=== PATIENT | male | born 1980 | race Caucasian/White ===

== ENCOUNTER 2019-12-11 18:15 | Emergency (ER) | payer SELFPAY ==
[2019-12-11 18:19] VITALS: BP 150/98; PULSE 118; RESP 16; TEMP 36.9; O2SAT 96; BMI 33.7
--- NOTE | 2019-12-11 18:28 | ED_ITS ---
Documented by User: VARUN Velazquez 12/12/19 01:09 HPI - Fever General: Chief Complaint: Fever Stated Complaint: fever Time Seen by Provider: 12/11/19 18:20 History of Present Illness: HPI Narrative: Patient is a 39-year-old male who comes into the ED with fever, cough and nasal congestion. Fever started about 4 to 5 days ago and he has not had a fever for the past 24 hours. Patient describes his cough as dry but sometimes productive with clear sputum. Patient also is complaining of some body aches. Patient is a smoker and is trying to cut down. 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 Denies any known contact with COVID-19 positive patient. Denies any current shortness of breath or respiratory distress. Associated symptoms: Deny abdominal pain, back/flank pain, chills, chest pain, diarrhea, dysuria, headache(s), nasal congestion, nausea or vomiting Review of Systems Const: Reports: fever and body aches; Denies: chills or fatigue Eyes: Denies: change in vision or eye discomfort ENMT: Denies: throat pain, painful swallowing, nasal discharge or nasal fernando estion Card: Denies: chest pain, palpitations, edema, swelling of feet/ankles, shortness of breath on exertion or shortness of breath when lying down Resp: Denies: shortness of breath, productive cough or non-productive cough GI: Denies: abdominal pain, nausea, vomiting, diarrhea, constipation or blood in stool : Denies: flank pain, difficulty urinating, painful urination or blood in urine Musc: Denies: neck pain, back pain or extremity swelling Skin/Breast: Denies: rash or new lesion Neuro: Denies: headache, numbness in extremities or weakness in extremities PFS ED PFSH: Social History Smoking and tobacco status: current every day smoker Physical Exam Narrative: EXAM NARRATIVE: Patient is a 39-year-old male who is sitting comfortably on exam bed when I enter the room. He was wearing a mask. He appeared in no acute distress or any respiratory distress. Const: COMMON NORMALS: oriented x3 HENMT: COMMON NORMALS: normocephalic and TM's normal bilaterally HEAD & SC ALP: normocephalic TYMPANIC MEMBRANE: TM's normal bilaterally MOUTH: oral and palatal mucosa normal THROAT: posterior oropharynx normal and uvula midline Neck/C-Spine: COMMON NORMALS: supple GENERAL: Yes normal visual inspection Lymph: LYMPHATIC: no lymphadenopathy noted Resp: COMMON NORMALS: normal respiratory effort, no retractions, no use of accessory muscles and clear to auscultation bilaterally AUSCULTATION: clear to auscultation bilaterally Cardio: COMMON NORMALS: regular rate, regular rhythm, S1 normal heart sound, S2 normal heart sound, no gallops, no clicks, no murmurs and peripheral pulses 2+ throughout RATE: regular rate RHYTHM: regular rhythm HEART SOUNDS: S1 normal and S2 normal PERIPHERAL PULSES: pulses 2+ throughout GI: COMMON NORMALS: normal to inspection, nondistended, normoactive bowel sounds, soft to palpation, non-tender and no masses PALPATION: Yes soft : COMMON NORMALS: Yes no CVA tenderness BLADDER/KIDNEY EXAM: Yes no CVA tenderness Back/Pelvis: COMMON NORMALS: no CVA tenderness Extremity: COMMON NORMALS: normal to inspection Neuro: COMMON NORMALS: oriented x3 and moves all extremities Skin: COMMON NORMALS: no rashes or lesions noted GENERAL SKIN EXAM: no rashes or lesions noted and dry skin Course Vital Signs: Vital signs: Vital Signs Temperature 98.4 F 12/11/19 18:19 Pulse Rate 109 H 12/11/19 20:16 Respiratory Rate 18 12/11/19 20:16 Blood Pressure 142/102 12/11/19 20:16 Pulse Oximetry 94 12/11/19 20:16 MDM - Fever MDM Narrative: Medical decision making narrative: Patient is a 39-year-old male who comes into the ED with fever, cough, nasal congestion and body aches. He has no known contact with COVID-19 positive patient. 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 Physical exam was unremarkable and patient's showing no signs of acute respiratory distress his lungs are clear to auscultation bilaterally. Influenza lab was negative. CBC showed an elevated white blood cell count of 12.4. Chest x-ray showed no pneumonia, possible bronchitis pending final radiology report. Patient was put on azithromycin. I ordered COVID-19 testing for this patient and he should be getting results in the next 24 to 48 hours. I informed infection prevention nurse here at [facility] about patient and testing for COVID. I told pt he needs to self quarantine until he gets test results and if he is positive then he needs a quarantine for 14 days. Lab Data: Attestation: I reviewed the patient's lab results. Labs: Lab Results 12/11/19 12/11/19 12/11/19 Range/Units 18:27 18:27 18:55 WBC 12.4 H (4.0-10.0) 10^3/ uL RBC 5.66 H (4.1-5.3) 10^6/u L Hgb 17.4 H (11.7-16.6) g/dL Hct 51.1 (42.0-52.0) % MCV 90.3 (80-94) fL MCH 30.7 (28.0-34.0) pg MCHC 34.1 (30.0-36.0) g/dL RDW 12.4 (12.1-15.1) % Plt Count 294 (130-400) 10^3/c mm MPV 9.6 (7.4-10.4) fL Neut % (Auto) 66.2 % Lymph % (Auto) 27.0 % [place] % (Auto) 4.6 % Eos % (Auto) 1.3 % Baso % (Auto) 0.5 % Neut # (Auto) 8.2 H (1.8-7.7) 10^3/u L Lymph # (Auto) 3.3 (0.8-4.8) 10^3/u L [place] # (Auto) 0.6 (0.2-0.9) 10^3/u L Eos # (Auto) 0.2 (0.0-0.8) 10^3/u L Baso # (Auto) 0.1 (0.0-0.1) 10^3/u L Nucleated RBC % (a uto) 0 % Nucleated RBCs # 0.0 /100WBC Sodium (136-145) mmol/L Potassium (3.5-5.1) mmol/L Chloride (98-107) mmol/L Carbon Dioxide (22-29) mmol/L Anion Gap (5-19) BUN (6-20) mg/dL Creatinine (0.7-1.2) mg/dL GFR Calculation (90-130) mL/min Glucose (65-115) mg/dL Calculated Osmolal ity (285-295) mOsm/k g Calcium (8.5-10.5) mg/dL Total Bilirubin (0.15-1.2) mg/dL AST (0-40) U/L ALT (0-41) U/L Alkaline Phosphata se (40-130) IU/L Total Protein (6.6-8.7) g/dL Albumin (3.5-5.2) g/dL Globulin (1.3-4.6) g/dL Influenza Type A A g Cancelled Negative POC Influenza B Ag Cancelled Negative 12/11/19 Range/Units 18:55 WBC (4.0-10.0) 10^3/ uL RBC (4.1-5.3) 10^6/u L Hgb (11.7-16.6) g/dL Hct (42.0-52.0) % MCV (80-94) fL MCH (28.0-34.0) pg MCHC (30.0-36.0) g/dL RDW (12.1-15.1) % Plt Count (130-400) 10^3/c mm MPV (7.4-10.4) fL Neut % (Auto) % Lymph % (Auto) % [place] % (Auto) % Eos % (Auto) % Baso % (Auto) % Neut # (Auto) (1.8-7.7) 10^3/u L Lymph # (Auto) (0.8-4.8) 10^3/u L [place] # (Auto) (0.2-0.9) 10^3/u L Eos # (Auto) (0.0-0.8) 10^3/u L Baso # (Auto) (0.0-0.1) 10^3/u L Nucleated RBC % (a uto) % Nucleated RBCs # /100WBC Sodium 136 (136-145) mmol/L Potassium 3.5 (3.5-5.1) mmol/L Chloride 99 (98-107) mmol/L Carbon Dioxide 22 (22-29) mmol/L Anion Gap 18.5 (5-19) BUN 13 (6-20) mg/dL Creatinine 1.2 (0.7-1.2) mg/dL GFR Calculation 67.1 L (90-130) mL/min Glucose 167 H (65-115) mg/dL Calculated Osmolal ity 282 L (285-295) mOsm/k g Calcium 9.4 (8.5-10.5) mg/dL Total Bilirubin 0.3 (0.15-1.2) mg/dL AST 17 (0-40) U/L ALT 19 (0-41) U/L Alkaline Phosphata se 82 (40-130) IU/L Total Protein 7.3 (6.6-8.7) g/dL Albumin 4.3 (3.5-5.2) g/dL Globulin 3.0 (1.3-4.6) g/dL Influenza Type A A g POC Influenza B Ag Imaging Data^: CXR: Attestation: I personally reviewed and interpreted this imaging study as follows: My impression: Possible Bronchitis. no pneumonia seen. Pending final radiology report. Discharge Plan Discharge Patient Disposition: Home, Self-Care Clinical Impression: Bronchitis Condition: Stable Prescriptions: New azithromycin 250 mg tablet See Rx Instructions .ROUTE .COMPLEX Qty: 6 RF: 0 Discharge Orders: Discharge Order (Routine); Ordered 12/11/19 Ordered By: Chad Casiano Referrals: [facility] [Other] Discharge Diet: Regular Discharge Activity: Limit activity as instructed Patient Instructions: Bronchitis (Acute) - Adult Activity Restrictions/Additional Instructions: Follow-up with your PCP in 7 to 10 days for reevaluation. Take full course of antibiotics as prescribed. We performed COVID-19 testing on you today in the ED and the results should be back within 24 to 48 hours. We will contact you with results. When you leave the ED here you need to be in self quarantine until you get COVID-19 results. If you test positive for COVID, then self quarantine for 14 days. drink plenty of fluids and stay hydrated. Take ibuprofen or Tylenol for fevers. Discharge Date/Time: 12/11/19 20:16 Coding Level of Care Code ED Manager Foreign for Chg Fwd Exam Comprehensive Documented by User: Diana Banerjee Padmini 12/12/19 11:20 HPI - Fever General: Chief Complaint: Fever Stated Complaint: fever Time Seen by Provider: 12/11/19 18:20 PFSH ED PFSH: Social History Smoking and tobacco status: current every day smoker Course Vital Signs: Vital signs: Vital Signs Temperature 98.4 F 12/11/19 18:19 Pulse Rate 109 H 12/11/19 20:16 Respiratory Rate 18 12/11/19 20:16 Blood Pressure 142/102 12/11/19 20:16 Pulse Oximetry 94 12/11/19 20:16 MDM - Fever Lab Data: Labs: Lab Results 12/11/19 12/11/19 12/11/19 Range/Units 18:27 18:27 18:55 WBC 12.4 H (4.0-10.0) 10^3/ uL RBC 5.66 H (4.1-5.3) 10^6/u L Hgb 17.4 H (11.7-16.6) g/dL Hct 51.1 (42.0-52.0) % MCV 90.3 (80-94) fL MCH 30.7 (28.0-34.0) pg MCHC 34.1 (30.0-36.0) g/dL RDW 12.4 (12.1-15.1) % Plt Count 294 (130-400) 10^3/c mm MPV 9.6 (7.4-10.4) fL Neut % (Auto) 66.2 % Lymph % (Auto) 27.0 % [place] % (Auto) 4.6 % Eos % (Auto) 1.3 % Baso % (Auto) 0.5 % Neut # (Auto) 8.2 H (1.8-7.7) 10^3/u L Lymph # (Auto) 3.3 (0.8-4.8) 10^3/u L [place] # (Auto) 0.6 (0.2-0.9) 10^3/u L Eos # (Auto) 0.2 (0.0-0.8) 10^3/u L Baso # (Auto) 0.1 (0.0-0.1) 10^3/u L Nucleated RBC % (a uto) 0 % Nucleated RBCs # 0.0 /100WBC Sodium (136-145) mmol/L Potassium (3.5-5.1) mmol/L Chloride (98-107) mmol/L Carbon Dioxide (22-29) mmol/L Anion Gap (5-19) BUN (6-20) mg/dL Creatinine (0.7-1.2) mg/dL GFR Calculation (90-130) mL/min Glucose (65-115) mg/dL Calculated Osmolal ity (285-295) mOsm/k g Calcium (8.5-10.5) mg/dL Total Bilirubin (0.15-1.2) mg/dL AST (0-40) U/L ALT (0-41) U/L Alkaline Phosphata se (40-130) IU/L Total Protein (6.6-8.7) g/dL Albumin (3.5-5.2) g/dL Globulin (1.3-4.6) g/dL Influenza Type A A g Cancelled Negative POC Influenza B Ag Cancelled Negative 12/11/19 Range/Units 18:55 WBC (4.0-10.0) 10^3/ uL RBC (4.1-5.3) 10^6/u L Hgb (11.7-16.6) g/dL Hct (42.0-52.0) % MCV (80-94) fL MCH (28.0-34.0) pg MCHC (30.0-36.0) g/dL RDW (12.1-15.1) % Plt Count (130-400) 10^3/c mm MPV (7.4-10.4) fL Neut % (Auto) % Lymph % (Auto) % [place] % (Auto) % Eos % (Auto) % Baso % (Auto) % Neut # (Auto) (1.8-7.7) 10^3/u L Lymph # (Auto) (0.8-4.8) 10^3/u L [place] # (Auto) (0.2-0.9) 10^3/u L Eos # (Auto) (0.0-0.8) 10^3/u L Baso # (Auto) (0.0-0.1) 10^3/u L Nucleated RBC % (a uto) % Nucleated RBCs # /100WBC Sodium 136 (136-145) mmol/L Potassium 3.5 (3.5-5.1) mmol/L Chloride 99 (98-107) mmol/L Carbon Dioxide 22 (22-29) mmol/L Anion Gap 18.5 (5-19) BUN 13 (6-20) mg/dL Creatinine 1.2 (0.7-1.2) mg/dL GFR Calculation 67.1 L (90-130) mL/min Glucose 167 H (65-115) mg/dL Calculated Osmolal ity 282 L (285-295) mOsm/k g Calcium 9.4 (8.5-10.5) mg/dL Total Bilirubin 0.3 (0.15-1.2) mg/dL AST 17 (0-40) U/L ALT 19 (0-41) U/L Alkaline Phosphata se 82 (40-130) IU/L Total Protein 7.3 (6.6-8.7) g/dL Albumin 4.3 (3.5-5.2) g/dL Globulin 3.0 (1.3-4.6) g/dL Influenza Type A A g POC Influenza B Ag Discharge Plan Discharge Patient Disposition: Home, Self-Care Clinical Impression: Bronchitis Condition: Stable Prescriptions: New azithromycin 250 mg tablet See Rx Instructions .ROUTE .COMPLEX Qty: 6 RF: 0 Discharge Orders: Discharge Order (Routine); Ordered 12/11/19 Ordered By: Chad Casiano Referrals: [facility] [Other] Discharge Diet: Regular Discharge Activity: Limit activity as instructed Patient Instructions: Bronchitis (Acute) - Adult Activity Restrictions/Additional Instructions: Follow-up with your PCP in 7 to 10 days for reevaluation. Take full course of antibiotics as prescribed. We performed COVID-19 testing on you today in the ED and the results should be back within 24 to 48 hours. We will contact you with results. When you leave the ED here you need to be in self quarantine until you get COVID-19 results. If you test positive for COVID, then self quarantine for 14 days. drink plenty of fluids and stay hydrated. Take ibuprofen or Tylenol for fevers. Discharge Date/Time: 12/11/19 20:16 Coding Level of Care Code ED Manager Foreign for Irasema Fwd Exam Comprehensive
--- NOTE | 2019-12-11 18:36 | XR_ITS ---
WS: [id number] Portable AP upright chest, 12/11/2019 Clinical Data: fever and cough Comparison: PA and lateral chest, 08/24/2011 Findings: No nodules, masses or effusions are seen. The heart is normal. The pulmonary vascularity is not increased. No pneumonia or pneumothorax is seen. XR/XR chest 1V portable [id number] Impression: Negative chest.
[2019-12-11 19:08] LABS: Basophils # 0.1 10^3/uL (0.0-0.1); Basophils % 0.5 %; Eosinophils # 0.2 10^3/uL (0.0-0.8); Eosinophils % 1.3 %; Hematocrit 51.1 % (42.0-52.0); Hemoglobin 17.4 g/dL (11.7-16.6); Lymphocytes # 3.3 10^3/uL (0.8-4.8); Mean Corpuscular HGB Conc 34.1 g/dL (30.0-36.0); Mean Corpuscular Hemoglobin 30.7 pg (28.0-34.0); Mean Corpuscular Volume 90.3 fL (80-94); Mean Platelet Volume 9.6 fL (7.4-10.4); Monocytes # 0.6 10^3/uL (0.2-0.9); Monocytes % 4.6 %; Neutrophils # 8.2 10^3/uL (1.8-7.7); Neutrophils % 66.2 %; Nucleated Red Blood Cells % 0 %; Platelet Count 294 10^3/cmm (130-400); Red Blood Count 5.66 10^6/uL (4.1-5.3); Red Cell Distribution Width 12.4 % (12.1-15.1); White Blood Count 12.4 10^3/uL (4.0-10.0)
[2019-12-11 19:27] LABS: Alanine Aminotransferase 19 U/L (0-41); Albumin Level 4.3 g/dL (3.5-5.2); Alkaline Phosphatase 82 IU/L (40-130); Anion Gap 18.5 (5-19); Aspartate Amino Transferase 17 U/L (0-40); Blood Urea Nitrogen 13 mg/dL (6-20); Calcium 9.4 mg/dL (8.5-10.5); Carbon Dioxide 22 mmol/L (22-29); Chloride 99 mmol/L (98-107); Creatinine Clr Calc Pharmacy 115.3796; Glomerular Filtration Rate 67.1 mL/min (90-130); Glucose 167 mg/dL (65-115); Osmolality Calculated 282 mOsm/kg (285-295); Potassium 3.5 mmol/L (3.5-5.1); Sodium 136 mmol/L (136-145); Total Bilirubin 0.3 mg/dL (0.15-1.2); Total Protein 7.3 g/dL (6.6-8.7)
[2019-12-11 19:53] LABS: Influenza A by IFA Negative (Negative); Influenza B by IFA Negative (Negative)
[2019-12-11 20:16] VITALS: BP 142/102; PULSE 109; RESP 18; O2SAT 94
[2019-12-15 12:46] LABS: Coronavirus Overall Results NOT DETECTED
--- NOTE | 2019-12-15 16:05 | PC.NURSE ---
pt contacted and given result of COVID 19 test
== END 2019-12-11 20:16 | disposition home or self-care (01) ==
PROVIDERS: Emergency Provider Physician Assistant
DX: J40 Bronchitis, not specified as acute or chronic (principal); F17.200 Nicotine dependence, unspecified, uncomplicated
CPT/HCPCS: 12345; 36415; 71045; 80053; 85025; 87635; 87804; 99281; 99283

== ENCOUNTER → 2020-05-07 09:01 | Outpatient (BNVA) | payer MEDICAID, SELFPAY | PROVIDERS: Visit Provider Podiatrist Foot & Ankle Surgery | DX: M21.622 Bunionette of left foot (principal); M79.672 Pain in left foot; M79.671 Pain in right foot | CPT/HCPCS: 73630 ==

== ENCOUNTER → 2020-05-28 09:19 | Outpatient (BNVA) | payer MEDICAID, SELFPAY | PROVIDERS: Visit Provider Internal Medicine | DX: Z11.59 Encounter for screening for other viral diseases (principal) | CPT/HCPCS: 87635 ==

== ENCOUNTER 2020-05-30 07:02 | Day surgery (SDC) | payer MEDICAID, SELFPAY ==
[2020-05-29 16:04] VITALS: BMI 35.9
--- NOTE | 2020-05-30 | SCC_ITS ---
Procedure Done: Bunionectomy [place]ailors [id number] 17 seconds of fluoroscopic guidance, for a cumulative dose of 0.488 mGy, was provided to Dr. Fox by the radiology department. C-arm images of the LEFT foot were saved for the patient's permanent record. [facility]
[2020-05-30 07:27] VITALS: BP 147/101; PULSE 88; RESP 18; TEMP 36.2; O2SAT 97
[2020-05-30] MEDS: sodium chloride 0.9% 1,000 ML 30 ML IV (07:41)
--- NOTE | 2020-05-30 07:47 | ANES.PREANE2 ---
Pre-Anesthetic Assessment Pre-Anesthetic Assessment: Height/Weight: Height 1.88 m Weight 127.006 kg Temp Pulse Resp BP Pulse Ox 97.2 F L 88 18 147/101 97 05/30/20 07:27 05/30/20 07:27 05/30/20 07:27 05/30/20 07:27 05/30/20 07:27 Preop Diagnosis: Left fifth hammertoe deformity. Left tailor's bunion. Proposed Procedure: Operation Date: 05/30/20 08:35 Proposed Procedures p Bunionectomy [place] 05959 M21.622(Left) - Kamron Fox DPM Familial anesthetic complications: Numbing medication doesn't work well fo rme Was Beta Timothy taken within 24 hours: N/A Last intake: Intake NPO > 8 hrs Last Liquid Date 05/29/20 Last Solid Date 05/29/20 Social: Social History: Tobacco Exam: Pre-Anes Outpt Exam: alert, oriented x 3, clear to auscultation bilaterally and regular rate & rhythm Airway: Cervical ROM: WNL MP: 3 Dentition: Chipped Additional comments: large neck circumference Pulmonary: Comments: bronchitis in november Metabolic: Metabolic: Morbid obesity Neuropsych: Neuropsych: CVA (?) Comments: hx L sided hemiparesis 2 years ago - no residual deficits (he attibutes this to stress) Anesthetic Plan: ASA status: 3 Anesthesia: MAC Risk of > 500 ml blood loss (7ml/kg in children): No PFSH Anesthesia PFSH: Medical History (Updated 05/07/20 @ 09:49 by Kamron Fox DPM) Amaral's palsy Slipped cervical disc Family History Mother Diabetes Hyperlipidemia Hypertension Brother Diabetes Hypertension Clotting disorder Father Diabetes Social History Smoking and tobacco status: current every day smoker cigarettes Packs smoked per day: 1.25 Second hand smoke exposure: Yes Alcohol intake: current Alcohol intake frequency: few times a month Caregiver/support person: Yes Household members: significant other Marital status: Single Sexually active: Yes Current gender identity: Male Data Anesthesia Cardiac Studies: No Data to Display
--- NOTE | 2020-05-30 08:23 | W.PM.OPSUD ---
Surgery/Procedure H&P Update DATE OF PROCEDURE: May 30, 2020 DATE H&P PERFORMED: 05/07/20 H&P UPDATE INFORMATION: I have reviewed H&P completed within last 30 days, I have examined patient prior to procedure, No changes to prior documentation and H&P is in [facility] [place] on date indicated PREOP DIAGNOSIS: Left fifth hammertoe deformity. Left tailor's bunion. PLANNED PROCEDURE: Operation Date: 05/30/20 08:35 Proposed Procedures p Bunionectomy [facility] [address]341 M21.622(Left) - Kamron Fox DPM
--- NOTE | 2020-05-30 09:54 | XR_ITS ---
WS: [id number] Left foot, 3 views, 05/30/2020 Clinical Data: post op Comparison: Bilateral feet, 05/07/2020. Findings: The patient has had an osteotomy of the distal left fifth metatarsal. The lateral aspect of the head of the fifth metacarpal has been shaved off. There are 2 small orthopedic screws in the distal fifth metatarsal. There is soft tissue swelling over the operative site. XR/XR foot LT min 3V* [id number] Impression: Bunionectomy and osteotomy of the distal left fifth metatarsal.
[2020-05-30 09:58] VITALS: BP 110/71; PULSE 84; RESP 18; TEMP 36.6; O2SAT 92
--- NOTE | 2020-05-30 10:03 | ANE.PACU2 ---
Inpatient post-anesthesia follow up: Airway intact: Yes Vital signs: Temperature 97.8 F Pulse Rate 84 Respiratory Rate 18 Blood Pressure 110/71 Pulse Oximetry 92 Oxygen Delivery Me thod Room Air Oxygen Flow Rate Fraction of Inspir ed Oxygen Hydration adequate: Yes Nausea and vomiting: No Pain level: 1 Mental status: Baseline
[2020-05-30 10:19] VITALS: BP 110/72; PULSE 81; RESP 18; O2SAT 94
--- NOTE | 2020-05-30 12:52 | P.OP_ITS ---
Operative Report Date of procedure: May 30, 2020 Pre-op Diagnosis: Left fifth hammertoe deformity. Left tailor's bunion. Post-op diagnosis: same Procedure Done: Left tailor's bunionectomy CPT code 04544 Implants: [place] 28 2.5mm screw by 14 mm screw x2 partially-threaded, cannulated. 2-0 Vicryl, 4-0 Vicryl, 4-0 nylon Specimens removed/disposition: None Pathology: none sent Surgeon: Kamron Fox D.P.M. Technical Sales Manager: Liza Anesthesia: MAC Estimated blood loss: 3 mL Tourniquet time: See intraoperative documentation IV fluids: None Urine output: None Complications: None Condition: stable Disposition: PACU Brief History: Mr. Bentley is a pleasant 39-year-old male with bilateral foot pain left more severe than right. He has pain on a daily basis at his left foot tailor's bunion deformity. He is exhausted conservative measures consisting of wide accommodative shoes, padding, stretching exercises, arch support, anti- inflammatories. 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 Would like to have this surgically corrected at this time. Discussed risks versus benefits in clinic, risks include pain, bleeding, numbness, infection, failure to correct deformity, overcorrection of deformity, painful retained hardware, delayed union, malunion, nonunion, transfer pressure, transfer lesion, swelling and bruising. No guarantees written, expressed or implied. Patient has signed informed consent, left foot marked by my initials and I met with patient preoperatively to once again go over risks versus benefits of the procedure as well as outlined postop follow-up and recovery. Patient wishes to proceed. Procedure: Under mild sedation the patient was brought to the operating room and placed on the operating table in supine position. A timeout was performed. Anesthesia was then administered by the anesthesia service. Local anesthesia injected by myself consisting of 20 cc of 0.5% Marcaine plain and a reverse Peralta block fashion to the left foot. Well-padded pneumatic tourniquet applied to the left ankle. The left lower extremity was then scrubbed, prepped and draped utilizing normal aseptic technique. Left foot was examined a weighted with an Esmarch bandage and the tourniquet inflated to 250 mmHg. Attention was directed to the dorsal lateral aspect of the left fifth metatarsal phalangeal joint where a linear longitudinal incision was made through skin with a #15 blade. Accommodation of blunt and sharp dissection carried down through subcutaneous tissue down to the level of the joint capsule and periosteum. Fresh blade was utilized for periosteal incision and capsular incision this was in a linear fashion in the head of the fifth metatarsal both dorsally and laterally was freed from its soft tissue and capsular attachments. Care was taken to retract and preserve all neurovascular and tendinous structures. Bleeders were ligated and cauterized as necessary. A sagittal saw was utilized to resect the dorsal lateral aspect of the fifth metatarsal head osseous prominence this was passed and operative field. Next a 1.1 K wire was inserted lateral to medial and the head of the fifth metatarsal left foot to act as an axis guide followed by a through and through chevron style osteotomy with a long plantar arm. Head of the fifth metatarsal was translocated medially and temporary fixated followed by fixation utilizing standard AO technique and Para emigdio 28 2.5 mm partially-threaded cannulated screws times 14 mm x 2. Excellent bony apposition and compression noted. Temporary fixation removed. Remaining lateral shelf was transected with sagittal saw and all rough edges smoothed. Positioning of screw and anatomical reduction of the bunionette was appreciated both with direct visualization and intraoperative fluoroscopy, screws were not violating the metatarsal phalangeal joint. Incision site was flushed with copious amounts of sterile saline solution. Capsular and periosteal structures reapproximated utilizing 2-0 Vicryl. Subcutaneous tissue reapproximated utilizing 4-0 Vicryl and skin closed with 4-0 nylon. Incision site was dressed with Adaptic, sterile 4 x 4's, Kerlix and Micky wrap. Tourniquet was deflated and a prompt hyperemic response was noted to the distal digits of the left foot. Patient tolerated the procedure well and was transferred to the PACU with vital signs stable and vascular status intact. He was dispensed a cam boot is to utilize this at all times when ambulating. Is to elevate his left foot while at rest. He was given further postoperative instructions and my contact information at discharge summary/discharge paperwork.
== END 2020-05-30 10:33 | disposition home or self-care (01) ==
PROVIDERS: Visit Provider Podiatrist Foot & Ankle Surgery
PROC: 0QBP0ZZ Excision of Left Metatarsal, Open Approach (ICD-10-PCS; CPT 28110; principal; 2020-05-30 08:35)
DX: M21.622 Bunionette of left foot (principal); M20.42 Other hammer toe(s) (acquired), left foot; E66.01 Morbid (severe) obesity due to excess calories; F17.210 Nicotine dependence, cigarettes, uncomplicated; Z88.5 Allergy status to narcotic agent; Z68.35 Body mass index [BMI] 35.0-35.9, adult
CPT/HCPCS: 28308; 12345; 73630; 76000; C1713; C9290; J0690; J2250; J2704; J3010; J3490; J7030

== ENCOUNTER 2020-06-12 11:09 | Outpatient (CLI) | payer MEDICAID, SELFPAY ==
--- NOTE | 2020-06-12 11:15 | XR_ITS ---
WS: [id number] LEFT FOOT: 3 VIEW(S) TECHNIQUE: AP, oblique and lateral. HISTORY: post operative COMPARISON: 05/30/2020 No acute fracture or dislocation. Osteotomy site distal fifth metatarsal. Partial healing along the osteotomy site. There are 2 small s crews in the fifth metatarsal metaphysis which are unchanged. There is persistent soft soft tissue ed vitor adjacent to the fifth metatarsal head which is probably postoperative. XR/XR foot LT min 3V* [id number] IMPRESSION: Partial healing LEFT fifth metatarsal osteotomy site. Postoperative screws unch anged in position with no complication.
== END 2020-06-12 11:10 | disposition home or self-care (01) ==
LOC: RADWPI 11:13
PROVIDERS: Visit Provider Podiatrist Foot & Ankle Surgery
DX: Z98.890 Other specified postprocedural states (principal)
CPT/HCPCS: 73630

== ENCOUNTER → 2020-06-18 14:37 | Outpatient (BNVA) | payer MEDICAID, SELFPAY | PROVIDERS: Visit Provider Podiatrist Foot & Ankle Surgery | DX: M21.622 Bunionette of left foot (principal) | CPT/HCPCS: 73630 ==

== ENCOUNTER → 2020-07-09 16:38 | Outpatient (BNVA) | payer MEDICAID, SELFPAY | PROVIDERS: Visit Provider Podiatrist Foot & Ankle Surgery | DX: Z98.890 Other specified postprocedural states (principal); M21.622 Bunionette of left foot | CPT/HCPCS: 73630 ==

== ENCOUNTER → 2021-04-24 13:39 | Outpatient (BNVA) | payer MEDICAID, SELFPAY | PROVIDERS: Visit Provider Podiatrist Foot & Ankle Surgery | DX: M79.672 Pain in left foot (principal) | CPT/HCPCS: 73630 ==

== ENCOUNTER 2021-09-29 18:23 | Emergency (ER) | payer MEDICAID, SELFPAY ==
[2021-09-29 19:11] VITALS: BP 133/90; PULSE 106; RESP 16; TEMP 36.7; O2SAT 96; BMI 36.9
--- NOTE | 2021-09-29 21:15 | ED_ITS ---
HPI - Extremity Problem General: Chief complaint: Extremity Problem,Nontraumatic Stated complaint: Hip Pain to Knee to Groan Time Seen by Provider: 09/29/21 20:56 History of Present Illness: HPI Narrative: 41-year-old male patient comes in today with complaints of left hip pain radiating to his left knee. Patient reports that started yesterday. Patient reports worsening discomfort with burning sensation. Patient does have a history of chronic low back pain and degenerative disc disease. Review of Systems General: Reports: 10 or more systems reviewed and unremarkable except in HPI and below Musc: Reports: other (Left hip pain) [facility] ED PFSH: Medical History (Updated 09/29/21 @ 21:14 by ERMA Mckee) Amaral's palsy Slipped cervical disc Family History Mother Diabetes Hyperlipidemia Hypertension Brother Diabetes Hypertension Clotting disorder Father Diabetes Social History Second hand smoke exposure: Yes Alcohol intake: current Alcohol intake frequency: few times a month Caregiver/support person: Yes Household members: significant other Marital status: Single Sexually active: Yes Current gender identity: Male Physical Exam Const: COMMON NORMALS: patient oriented x3 GENERAL APPEARANCE: cooperative HENMT: COMMON NORMALS: normocephalic and Normal external nose present HEAD & SCALP: normocephalic NOSE: Normal external nose present Eye: GENERAL EYE: appearance normal, both eyes and all related structures Lymph: LYMPHATIC: no lymphadenopathy noted Resp: COMMON NORMALS: normal respiratory effort EFFORT & INSPECTION: Yes able to speak in complete sentences Cardio: COMMON NORMALS: regular rate and regular rhythm RATE: regular rate RHYTHM: regular rhythm GI: COMMON NORMALS: non-tender : COMMON NORMALS: Yes no CVA tenderness BLADDER/KIDNEY EXAM: Yes no CVA tenderness Back/Pelvis: COMMON NORMALS: no CVA tenderness THORACIC SPINE/UPPER BACK: Yes normal to inspection LUMBAR SPINE/LOWER BACK: Yes lumbar spinal tenderness Lumbar spinal tenderness location: L4 and L5, Yes paraspinal muscle tenderness Lumbar paraspinal muscle tenderness: left and Yes straight leg raise positive left Extremity: COMMON NORMALS: normal to inspection Neuro: COMMON NORMALS: patient oriented x3 and moves all extremities Psych: COMMON NORMALS: mental status grossly normal and cooperative Skin: COMMON NORMALS: no rashes or lesions noted GENERAL SKIN EXAM: no rashes or lesions noted Course Vital Signs: Vital signs: Vital Signs Temperature 98.1 F 09/29/21 19:11 Pulse Rate 106 H 09/29/21 19:11 Respiratory Rate 16 09/29/21 19:11 Blood Pressure 133/90 09/29/21 19:11 Pulse Oximetry 96 09/29/21 19:11 MDM - Extremity (Nontraumatic) MDM Narrative: Medical decision making narrative: 41-year-old male patient comes in today with complaints of pain in his posterior left hip radiating down to his knee. On exam patient has tenderness in the lumbar spine around L4-L5 area. Patient also has some muscle tightness and tenderness on the left lower lumbar area. Differential diagnosis includes facet arthropathy, intervertebral disc disease, sciatica. I think the patient probably has exacerbation of his chronic back pain with some sciatic symptoms. Patient was given a 10 mg dexamethasone, 60 of Toradol, and 60 mg orphenadrine. Patient was sent home with 1 hydrocodone tablet. Patient will be continued on hydrocodone and diclofenac for his pain and inflammation. Recommended follow-up with primary care in 1 week for further treatment and evaluation and consideration of physical therapy or referral. Discharge Plan Discharge Patient Disposition: Home Clinical Impression: Sciatica Qualifiers: Laterality: left Qualified Code(s): M54.32 - Sciatica, left side Condition: Stable Prescriptions: New hydrocodone-acetaminophen 5-325 mg tablet 1 tab PO Q6H PRN (Reason: pain) Qty: 10 RF: 0 diclofenac sodium 75 mg tablet,delayed release (DR/EC) 75 mg PO BID Qty: 14 RF: 0 No Action acetaminophen 650 mg Tablet Extended Release 650 mg PO Q12H PRN (Reason: Pain) RF: 0 Hold Instructions: Resume on 06/04/20. Hold tylenol until done with Hydr ocodone. ibuprofen 200 mg Tablet 200 mg PO Q6H PRN (Reason: Pain) RF: 0 Hold Instructions: Resume on 07/18/20. Discharge Orders: Discharge ED (Routine); Ordered 09/29/21 Ordered By: Ramon Gama Discharge Diet: Usual diet Discharge Activity: Increase activity as tolerated Patient Instructions: Back Pain (ED), Lower Back Exercises (ED), Opioid Safety Activity Restrictions/Additional Instructions: Activity as tolerated. Gentle stretching and range of motion exercises. Drink plenty of water with medication. Follow-up with primary care for further treatment and evaluation. You may need to have referral to physical therapy for repeat treatment, or referral to a spinal specialist for further care. Return to the ER for new concerns. Coding Level of Care Code ED Hot Dip Plater for Irasema Ferriera
[2021-09-29] MEDS: ketorolac 30 mg/mL INJ IM (21:29)
[2021-09-29] MEDS: dexamethasone 10 mg/mL INJ IM (21:32)
[2021-09-29] MEDS: orphenadrine 30 mg/mL Inj 2 mL 60 MG IM (21:33)
== END 2021-09-29 21:38 | disposition home or self-care (01) ==
PROVIDERS: Emergency Provider Nurse Practitioner Family
DX: M54.32 Sciatica, left side (principal); Z77.22 Contact with and (suspected) exposure to environmental tobacco smoke (acute) (chronic)
CPT/HCPCS: 96372; 99283; J1100; J1885; J2360

== ENCOUNTER 2021-10-10 06:35 | Emergency (ER) | payer MEDICAID, SELFPAY ==
[2021-10-10 06:46] VITALS: BP 158/103; PULSE 109; RESP 26; TEMP 36.1; O2SAT 96; BMI 37.8
--- NOTE | 2021-10-10 07:34 | W.ED.BACK ---
HPI - Back Pain/Injury General: Chief Complaint: Back Pain/Injury Stated Complaint: low back pain Time Seen by Provider: 10/10/21 07:10 History of Present Illness: HPI Narrative: Patient presents with a week and a half history of acute on chronic back pain. Patient says 2018 he fell at work and was told first that he had a bulging disc and then he said later in the provider change it to degenerative disc disease after x-rays were back. Patient did not agree with that diagnosis. Patient has been dealing back pain since then but a week and half ago he twisted and felt pain in his back and came into the ER got a prescription and injection. He said medication helps some, patient states he does not like narcotics he understands that help with pain but he does not like to take them. Patient states pain is back and that left hip going down about midway to his calf. Hurts to ambulate set up roll over in bed. Has appoint with ERMA Ellison this coming week. MD elicited complaint: back pain and back injury Pertinent past history: prior back pain Onset (ago): week(s) Timing: constant Severity: moderate Similar Symptoms Previously: Yes Quality: burning and aching Location: lumbar spine Radiation: left upper leg and left leg below the knee Exacerbating factors: movement and sitting upright Relieving factors: immobilization Context: turning/twisting Associated symptoms: Reports no associated symptoms; Deny abdominal pain, chills, fever(s), nausea or vomiting Treatments prior to arrival: NSAIDS and acetaminophen Review of Systems Const: Denies: fever(s), chills or body aches Eyes: Denies: change in vision or blurry vision ENMT: Denies: throat pain or nasal congestion Card: Denies: chest pain or dyspnea on exertion Resp: Denies: dyspnea, productive cough or non-productive cough GI: Denies: abdominal pain, nausea or vomiting : Denies: difficulty urinating Musc: Reports: back pain; Denies: extremity pain Skin/Breast: Denies: rash Neuro: Denies: headache(s) Psych: Denies: anxiety or depression Sina/Lymph: Denies: easy bruising PFS ED PFSH: Medical History (Updated 10/10/21 @ 07:34 by ERMA Baez) Amaral's palsy Slipped cervical disc Family History Mother Diabetes Hyperlipidemia Hypertension Brother Diabetes Hypertension Clotting disorder Father Diabetes Social History Second hand smoke exposure: Yes Alcohol intake: current Alcohol intake frequency: few times a month Caregiver/support person: Yes Household members: significant other Marital status: Single Sexually active: Yes Current gender identity: Male Physical Exam Const: COMMON NORMALS: patient oriented x3 GENERAL APPEARANCE: cooperative Resp: COMMON NORMALS: normal respiratory effort Cardio: RATE: tachycardic GI: INSPECTION: Yes normal to inspection Back/Pelvis: OTHER: Observe patient ambulating down the mae and he favors that left leg. Does have disconcerted gait. Patient has pain when crossing legs and lifting left leg over right. This pain in the low back and down the hip. Neuro: COMMON NORMALS: patient oriented x3 Psych: COMMON NORMALS: mental status grossly normal ATTITUDE: Yes calm Course Vital Signs: Vital signs: Vital Signs Temperature 96.9 F L 10/10/21 06:46 Pulse Rate 109 H 10/10/21 06:46 Respiratory Rate 26 H 10/10/21 06:46 Blood Pressure 158/103 10/10/21 06:46 Pulse Oximetry 96 10/10/21 06:46 Discharge Plan Discharge Patient Disposition: Home Clinical Impression: Sciatica Qualifiers: Laterality: left Qualified Code(s): M54.32 - Sciatica, left side Strain of lumbar region Qualifiers: Encounter type: subsequent encounter Qualified Code(s): S39.012D - Strain of muscle, fascia and tendon of lower back, subsequent encounter Condition: Stable Prescriptions: New prednisone 20 mg tablet 60 mg PO DAILY Qty: 21 RF: 0 Celebrex 100 mg capsule 200 mg PO BID Qty: 20 RF: 0 Discontinued diclofenac sodium 75 mg tablet,delayed release (DR/EC) 75 mg PO BID Qty: 14 RF: 0 No Action hydrocodone-acetaminophen 5-325 mg tablet 1 tab PO Q6H PRN (Reason: pain) Qty: 10 RF: 0 acetaminophen 650 mg Tablet Extended Release 650 mg PO Q12H PRN (Reason: Pain) RF: 0 Hold Instructions: Resume on 06/04/20. Hold tylenol until done with Hydrocodone. ibuprofen 200 mg Tablet 200 mg PO Q6H PRN (Reason: Pain) RF: 0 Hold Instructions: Resume on 07/18/20. Discharge Orders: Discharge ED (Routine); Ordered 10/10/21 Ordered By: Deejay Leach Discharge Diet: Usual diet Discharge Activity: Limit activity as instructed Patient Instructions: Lumbar Radiculopathy (ED) Activity Restrictions/Additional Instructions: Follow-up with medical provider as directed. Take medications as prescribed. Return to the ER or your medical provider if condition worsens. Please read and understand discharge instructions. If any questions ask please. Coding Level of Care Code ED Aircraft Structural Design Engineer for Irasema Ferreira
--- NOTE | 2021-10-10 11:11 | ED_ITS ---
HPI - Back Pain/Injury General: Chief Complaint: Back Pain/Injury Stated Complaint: low back pain Time Seen by Provider: 10/10/21 07:10 History of Present Illness: Severity: moderate Similar Symptoms Previously: Yes Quality: burning and aching Exacerbating factors: movement and sitting upright Relieving factors: immobilization Treatments prior to arrival: NSAIDS and acetaminophen [facility] ED PFSH: Medical History (Updated 10/10/21 @ 07:34 by ERMA Baez) Amaral's palsy Slipped cervical disc Family History Mother Diabetes Hyperlipidemia Hypertension Brother Diabetes Hypertension Clotting disorder Father Diabetes Social History Second hand smoke exposure: Yes Alcohol intake: current Alcohol intake frequency: few times a month Caregiver/support person: Yes Household members: significant other Marital status: Single Sexually active: Yes Current gender identity: Male Course Vital Signs: Vital signs: Vital Signs Temperature 96.9 F L 10/10/21 06:46 Pulse Rate 109 H 10/10/21 06:46 Respiratory Rate 26 H 10/10/21 06:46 Blood Pressure 158/103 10/10/21 06:46 Pulse Oximetry 96 10/10/21 06:46 MDM - Back Pain/Injury MDM Narrative: Medical decision making narrative: Patient comes back to the ER with acute on chronic back pain. Patient with the same pain that he had the other day. He said medications helped for a while but they are back. Patient says he does not like narcotics because we makes him feel. I gave patient pres cription for steroids and Celebrex to help with discomfort. Also ordered a shot of Toradol. Patient also with mild hypertension consistent with past history. Does not take medication. Patient discharged. I injection Toradol was administered by nurse and patient did not receive the injection. Patient instructed come back to the ER to receive injection. Discharge Plan Discharge Patient Disposition: Home Clinical Impression: Sciatica Qualifiers: Laterality: left Qualified Code(s): M54.32 - Sciatica, left side Strain of lumbar region Qualifiers: Encounter type: subsequent encounter Qualified Code(s): S39.012D - Strain of muscle, fascia and tendon of lower back, subsequent encounter Condition: Stable Prescriptions: New prednisone 20 mg tablet 60 mg PO DAILY Qty: 21 RF: 0 Celebrex 100 mg capsule 200 mg PO BID Qty: 20 RF: 0 Discontinued diclofenac sodium 75 mg tablet,delayed release (DR/EC) 75 mg PO BID Qty: 14 RF: 0 No Action hydrocodone-acetaminophen 5-325 mg tablet 1 tab PO Q6H PRN (Reason: pain) Qty: 10 RF: 0 acetaminophen 650 mg Tablet Extended Release 650 mg PO Q12H PRN (Reason: Pain) RF: 0 Hold Instructions: Resume on 06/04/20. Hold tylenol until done with Hydrocodone. ibuprofen 200 mg Tablet 200 mg PO Q6H PRN (Reason: Pain) RF: 0 Hold Instructions: Resume on 07/18/20. Discharge Orders: Discharge ED (Routine); Ordered 10/10/21 Ordered By: Deejay Leach Discharge Diet: Usual diet Discharge Activity: Limit activity as instructed Patient Instructions: Lumbar Radiculopathy (ED) Activity Restrictions/Additional Instructions: Follow-up with medical provider as directed. Take medications as prescribed. Return to the ER or your medical provider if condition worsens. Please read and understand discharge instructions. If any questions ask please. Coding Level of Care Code ED Staff [employer] Information [employer] Officer for Irasema Ferreira
== END 2021-10-10 08:17 | disposition home or self-care (01) ==
PROVIDERS: Emergency Provider Nurse Practitioner Family
DX: M54.32 Sciatica, left side (principal); S39.012A Strain of muscle, fascia and tendon of lower back, initial encounter; Z77.22 Contact with and (suspected) exposure to environmental tobacco smoke (acute) (chronic); X50.1XXA Overexertion from prolonged static or awkward postures, initial encounter
CPT/HCPCS: 99282

== ENCOUNTER → 2021-10-27 08:32 | Outpatient (BNVA) | payer MEDICAID, SELFPAY | PROVIDERS: Visit Provider Podiatrist Foot & Ankle Surgery | DX: Z20.822 Contact with and (suspected) exposure to COVID-19 (principal); Z01.818 Encounter for other preprocedural examination | CPT/HCPCS: 87635 ==

== ENCOUNTER → 2021-10-29 10:23 | Outpatient (BNVA) | payer MEDICAID, SELFPAY | PROVIDERS: Referring Provider Nurse Practitioner Family; Visit Provider Orthopaedic Surgery | DX: M48.062 Spinal stenosis, lumbar region with neurogenic claudication (principal); M16.6 Other bilateral secondary osteoarthritis of hip | CPT/HCPCS: 72110; 73502 ==

== ENCOUNTER 2021-10-30 08:06 | Day surgery (SDC) | payer MEDICAID, SELFPAY ==
[2021-10-29 13:20] VITALS: BMI 38.0
[2021-10-30] VITALS (7 sets, daily range): BP systolic 109–150; BP diastolic 71–97; PULSE 59–99; RESP 16–19; TEMP 36.2–36.3; O2SAT 94–98
--- NOTE | 2021-10-30 | SCC_ITS ---
Procedure done: Deep hardware removal left foot Fluoroscopic guidance was provided to Dr. Fox by the radiology department. C-arm images of the LEFT foot were saved for the patient's permanent record. MINE
--- NOTE | 2021-10-30 09:04 | ANES.PREANE2 ---
Pre-Anesthetic Assessment Height/Weight: Height 1.91 m Weight 137.892 kg Temp Pulse Resp BP Pulse Ox 97.4 F L 88 19 H 133/96 95 10/30/21 08:41 10/30/21 08:41 10/30/21 08:41 10/30/21 08:41 10/30/21 08:41 Preop Diagnosis: Painful hardware there left foot Operation Date: 10/30/21 09:45 Proposed Procedures p Hardware Removal left foot 67074/[id number](Left) - Karmon Fox DPM Familial anesthetic complications: None Was Beta Timothy taken within 24 hours: N/A Was Clonidine taken within 24 hours: N/A Last intake: Intake Last Liquid Date 10/29/21 Last Liquid Time 22:00 Last Solid Date 10/29/21 Last Solid Time 22:00 Social Tobacco and No alcohol Exam alert, oriented x 3 and regular rate & rhythm Airway Submandibular: within normal limits Cervical ROM: within normal limits Mallampati: Class II Dentition: chipped Comments: Comments: [facility] Chronic Obstructive Pulmonary Disease Metabolic Morbid Obesity [facility] [place] Lower Back Pain and Osteoarthritis/DJD Anesthetic Plan ASA status: 2 Anesthesia: Choice Medications/Allergies Home Medications Medication Instructions Recorded Confirmed Last Taken Type acetaminophen 650 mg 650 mg PO Q12H PRN 05/30/20 10/30/21 10/26/21 History tablet,extended release ibuprofen 200 mg tablet 200 mg PO Q6H PRN 05/30/20 10/30/21 10/27/21 History celecoxib 100 mg capsule 100 mg PO DAILY 10/30/21 10/30/21 10/26/21 History Allergies Allergy/AdvReac Type Severity Reaction Status Date / Time haloperidol [From Haldol] Allergy ALGY-Swell Verified 10/29/21 10:34 Lip/Tongue/Throat tramadol Allergy ALGY-Hives Verified 10/29/21 10:34 [facility] Anesthesia Medical History (Updated 10/29/21 @ 11:15 by Sam Rose DO) Amaral's palsy Slipped cervical disc Family History Mother Diabetes Hyperlipidemia Hypertension Brother Diabetes Hypertension Clotting disorder Father Diabetes Social History Smoking and tobacco status: current every day smoker cigarettes Packs smoked per day: 1.25 Second hand smoke exposure: Yes Alcohol intake: current Alcohol intake frequency: few times a month Caregiver/support person: Yes Household members: significant other Marital status: Single Sexually active: Yes Current gender identity: Male Data Anesthesia Cardiac Studies: No Data to Display
[2021-10-30] MEDS: sodium chloride 0.9% 1,000 ML 30 ML IV (09:20)
--- NOTE | 2021-10-30 10:06 | W.PM.OPSUD ---
Surgery/Procedure H&P Update DATE OF PROCEDURE: October 30, 2021 DATE H&P PERFORMED: 10/30/21 CHANGES TO PREVIOUS DOCUMENTATION: no PREOP DIAGNOSIS: Painful hardware there left foot PLANNED PROCEDURE: Operation Date: 10/30/21 09:45 Proposed Procedures p Hardware Removal left foot [id number](Left) - Kamron Fox DPM
--- NOTE | 2021-10-30 10:13 | XR_ITS ---
WS: [id number] FOOT LEFT TECHNIQUE: 2 views of the left foot CLINICAL INFORMATION: post op COMPARISON: April 24, 2021 FINDINGS: Postoperative changes removal of the screw fixation 5th metatarsal head. Normal anatomic alignment. H ealed 5th metatarsal head and neck fracture. Hallux valgus. XR/XR foot LT 2V [id number] IMPRESSION: Normal for postoperative purposes.
[2021-10-30] MEDS: ceFAZolin 3,000 MG in sodium chloride 0.9% (100 ml) 100 ML 200 MG IV (10:22)
--- NOTE | 2021-10-30 10:53 | P.OP_ITS ---
Operative Report Date of procedure: October 30, 2021 Pre-op diagnosis: Painful hardware there left foot Post-op diagnosis: Same Post-op findings: None Procedure done: Deep hardware removal left foot Implants: 4-0 Vicryl, 4-0 nylon Specimens removed/disposition: Balko 28 2.5 millimeter screws x2 Pathology: None Surgeon: Kamron Fox D.P.M. Geriatric Social Work Professor: Kylee Estimated blood loss: Less than 5 13 minutes IV fluids: 0 Urine output: 0 Complications: None Findings: None Brief History: Patient underwent tailor's bunionectomy with fixation of osteotomy site utilizing 2.5 millimeter screws, he states that he is hyper aware of his body that these are irritating would like to have them removed he feels them on a daily basis wearing shoes, standing and walking. Discussed risks of hardware removal including but not limited to pain, bleeding, numbness, infection, surgical site dehiscence, bruising, permanent numbness and chronic swelling, failure to retrieve hardware, fragmented and failed hardware and need for further surgical intervention. Patient is agreeable wishes to proceed. Covid screening was negative, is n.p.o. since midnight, his initial his operative foot, I also initialed his left foot, informed consent signed by patient and myself. No guarantees written, expressed or implied. Patient wishes to proceed. Procedure: Under mild sedation the patient was brought to the operating room and remained on the gurney in supine position. A timeout was performed. Anesthesia was then administered by the anesthesia service. Local anesthesia was injected by myself consisting of 20 cc of 0.5% Marcaine plain. Well-padded pneumatic tourniquet applied to the left ankle. The left lower extremity was then scrubbed, prepped and draped utilizing normal aseptic technique. Left foot was exanguinated with an Esmarch bandage and a tourniquet inflated to 250 mmHg. Attention was directed to the dorsal lateral aspect of the left fifth metatarsal phalangeal joint where previous cicatrix was visualized and directly over the previous incision linear longitudinal incision was made with a #15 blade through skin with dissection carried down through subcutaneous tissue to the layer of hardware utilizing sharp and blunt technique. Care was taken to retract and preserve neurovascular and tendinous structures. All bleeders were ligated and cauterized as necessary. 2 screw heads were identified and removed in total the entire screw was intact and passed from the operative field. Incision was flushed with saline solution and closed in a layered fashion with 4-0 Vicryl at subcutaneous tissue and skin closed with 4-0 nylon. Utilizing Exparel total of 10 cc this was infiltrated in a grid like fashion subcutaneously per dispatcher ship pilot recommendation and technique. Incision was then dressed with Adaptic, sterile 4 x 4, Kerlix, Micky wrap followed by application of a postoperative shoe. Tourniquet was deflated and a prompt hyperemic response was noted to the distal digits of the left foot. Patient tolerated the procedure and anesthesia well and was transferred to the PACU with vital signs stable and vascular status intact. Following a period of postoperative monitoring he will be discharged home. Was given at home care instructions, follow-up as well as my cell phone number to contact with any postoperative questions or concerns.
--- NOTE | 2021-10-30 10:57 | SUR.OPER ---
1053 removed two screws, cleaned and given back to pt in a cup
--- NOTE | 2021-10-30 12:04 | P.HP_ITS ---
Providers/Chief Complaint Primary Care Provider: ERMA Ellison Chief Complaint: painful hardware Patient is a 41-year-old male presents to clinic with complaints of left foot pain.? He believes that he may be experiencing hardware pain, describes the nature of the pain is sharp after standing on his feet for more than 10-15 minutes.? He would like to proceed with hardware removal at today's visit. Patient denies any subjective nausea, vomiting, fever, chills, shortness of breath or chest pain. History of Present Illness Martin Bentley is a 41 year old male Review of Systems General: Reports: 10 or more systems reviewed and unremarkable except in HPI and below Const: Denies: fever(s) or chills Eyes: Denies: change in vision Card: Denies: chest pain or palpitations Resp: Denies: dyspnea or productive cough GI: Denies: abdominal pain, nausea or vomiting : Denies: flank pain Musc: Reports: extremity pain Skin/Breast: Denies: rash Neuro: Denies: numbness in extremities, sensory changes or frequent falls Psych: Denies: suicidal ideation Sina/Lymph: Denies: easy bruising Medications/Allergies Home Medications Medication Instructions Recorded Confirmed Last Taken Type acetaminophen 650 mg 650 mg PO Q12H PRN 05/30/20 10/30/21 10/26/21 History tablet,extended release ibuprofen 200 mg tablet 200 mg PO Q6H PRN 05/30/20 10/30/21 10/27/21 History celecoxib 100 mg capsule 100 mg PO DAILY 10/30/21 10/30/21 10/26/21 History hydrocodone 10 mg-acetaminophen 1 tab PO Q6H PRN 7 Days #28 tab 11/06/21 Unknown Rx 325 mg tablet Allergies Allergy/AdvReac Type Severity Reaction Status Date / Time haloperidol [From Haldol] Allergy ALGY-Swell Verified 10/29/21 10:34 Lip/Tongue/Throat tramadol Allergy ALGY-Hives Verified 10/29/21 10:34 PFSH PFSH: Medical History (Updated 10/29/21 @ 11:15 by Sam Rose DO) Amaral's palsy Slipped cervical disc Family History Mother Diabetes Hyperlipidemia Hypertension Brother Diabetes Hypertension Clotting disorder Father Diabetes Social History (Updated 10/30/21 @ 09:42 by Daisy Huitron RN) Smoking and tobacco status: current every day smoker cigarettes Packs smoked per day: 2.5 Second hand smoke exposure: Yes Alcohol intake: current Alcohol intake frequency: few times a month Caregiver/support person: Yes Household members: significant other Marital status: Single Sexually active: Yes Current gender identity: Male Vital Signs Vitals Signs: Last Vital Signs Temp 97.2 F L 10/30/21 11:35 Pulse 82 10/30/21 11:35 Resp 17 10/30/21 11:35 BP 150/97 10/30/21 11:35 Pulse Ox 94 10/30/21 11:35 Physical Exam Narrative: EXAM NARRATIVE: Patient is alert and oriented ?3 and in no acute distress.? The following is a focused left lower extremity exam. VASCULAR: Dorsalis pedis and posterior tibial arteries palpable +2.? Capillary refill time less than 3 seconds to the distal hallux bilaterally. Calf is supple and nontender proximally and distally.? Focal edema to the left foot lateral to the fifth metatarsophalangeal joint. NEUROLOGICAL: Protective sensation intact to light touch. DERMATOLOGICAL: Well-healed cicatrix at bunionette left foot there is mild localized erythema at the left lateral forefoot with warmth there is no drainage, no proximal lymphangitic streaking. MUSCULOSKELETAL: Tenderness to palpation at the left fifth metatarsal head plantarly.? No pain with posterior calf squeeze.? Muscle strength 5 out of 5 in all 3 cardinal planes to the left foot and ankle. CARDIOVASCULAR: S1, S2, normal rate, normal rhythm.? Dorsalis pedis and posterior tibial arteries palpable. LUNGS: Clear to auscltation, no use of acessory muscles, no crackles or wheezes. A&P Assessment and plan (1) Painful orthopaedic hardware: Painful hardware left foot patient requesting removal.? X-ray shows intact hardware without lucency or failure, 2 screws at the left fifth metatarsal. Patient requesting hardware to be removed today October 30, 2021.? Risks include pain, bleeding, numbness, infection, surgical site dehiscence, painful scar, failure to retrieve hardware, broken hardware, continued pain after hardware was removed and need for further surgical intervention and treatment.? Patient is agreeable wishes to proceed. Deep hardware removal left foot October, duration of procedure 30 minutes, MAC anesthesia. Status: Acute Coding Level of Care Code Acute Social Media Coordinator for g Fwd Diagnoses Painful orthopaedic hardware T84.84XA
--- NOTE | 2021-10-30 14:16 | ANE.PACU2 ---
Inpatient post-anesthesia follow up: Airway intact: Yes Vital signs: Temperature 97.2 F Pulse Rate 82 Respiratory Rate 17 Blood Pressure 150/97 Pulse Oximetry 94 Oxygen Delivery Me thod Room Air Oxygen Flow Rate 6 Fraction of Inspir ed Oxygen Hydration adequate: Yes Nausea and vomiting: No Pain level: 2 Mental status: Baseline
== END 2021-10-30 11:40 | disposition home or self-care (01) ==
PROVIDERS: PCP Nurse Practitioner Family; Visit Provider Podiatrist Foot & Ankle Surgery
PROC: (CPT 20680; principal; 2021-10-30 09:35)
DX: T84.84XA Pain due to internal orthopedic prosthetic devices, implants and grafts, initial encounter (principal); J44.9 Chronic obstructive pulmonary disease, unspecified; E66.01 Morbid (severe) obesity due to excess calories; Z68.38 Body mass index [BMI] 38.0-38.9, adult; M19.90 Unspecified osteoarthritis, unspecified site; F17.210 Nicotine dependence, cigarettes, uncomplicated
CPT/HCPCS: 20680; 73620; 76000; C9290; J0690; J1100; J2250; J2405; J2704; J3010; J3490; J7030; L3260

== ENCOUNTER 2022-02-01 13:18 | Outpatient (CLI) | payer MEDICAID, SELFPAY ==
--- NOTE | 2022-02-01 13:45 | MR_ITS ---
WS: [id number] MRI LUMBAR SPINE NONCONTRAST HISTORY: M48.062 - Spinal stenosis, patient fell 2 years ago. Low back pain. Bilateral hip pain and n umbness. COMPARISON: None available. TECHNIQUE: Sagittal and axial multisequence imaging is submitted. Mild straightening of the normal lumbar lordosis. L3 retrolisthesis by 3 mm. No fracture or marrow edema. Mild disc desiccation L3-4, L4-5 and L5-S1. Conus terminates normally at L1-2 disc level. L1-L2: Normal. L2-L3: Normal. L3-L4: Mild annular disc bulging and osteophytic ridging. Small central disc protrusion and mild liga mentum flavum and facet arthritis. Additional very small disc osteophyte in the proximal RIGHT forame n. Not definitely contacting the nerve root. This is seen best on the sagittal projection. No signifi cant encroachment upon the nerve roots appreciated. L4-L5: Mild annular disc bulging with a small amount of fluid in the facet joints and facet arthritis . No foraminal stenosis. L5-S1: Central disc protrusion extends just to the RIGHT of midline. No definite contact on the nerve roots. Only mild facet joint arthritis. MR/MR lumbar spine wo con* [id number] IMPRESSION: 1. No high-grade central or foraminal stenosis. 2. Central disc protrusion at L5-S1 without contact on the nerve roots. 3. Small central disc protrusion at L3-4. Additional small proximal RIGHT fora nate disc osteophyte without evidence for nerve root contact.
== END 2022-02-01 13:19 | disposition home or self-care (01) ==
LOC: RAD 13:19
PROVIDERS: PCP Nurse Practitioner Family; Visit Provider Orthopaedic Surgery
DX: M48.062 Spinal stenosis, lumbar region with neurogenic claudication (principal); M51.27 Other intervertebral disc displacement, lumbosacral region
CPT/HCPCS: 72148

== ENCOUNTER → 2022-02-16 08:30 | Outpatient (BNVA) | payer MEDICAID, SELFPAY | PROVIDERS: PCP Nurse Practitioner Family; Visit Provider Orthopaedic Surgery | DX: M48.062 Spinal stenosis, lumbar region with neurogenic claudication (principal); M51.26 Other intervertebral disc displacement, lumbar region | CPT/HCPCS: 99214 ==

== ENCOUNTER → 2022-03-01 09:40 | Outpatient (BNVA) | payer MEDICAID, SELFPAY | PROVIDERS: PCP Nurse Practitioner Family; Visit Provider Anesthesiology Pain Medicine | DX: M47.816 Spondylosis without myelopathy or radiculopathy, lumbar region (principal); M51.36 Other intervertebral disc degeneration, lumbar region; M79.604 Pain in right leg; M79.605 Pain in left leg; F17.210 Nicotine dependence, cigarettes, uncomplicated | CPT/HCPCS: 99205 ==

== ENCOUNTER → 2022-04-08 14:44 | Outpatient (BNVA) | payer MEDICAID, SELFPAY | PROVIDERS: PCP Nurse Practitioner Family; Visit Provider Orthopaedic Surgery | DX: M48.062 Spinal stenosis, lumbar region with neurogenic claudication (principal); M53.2X6 Spinal instabilities, lumbar region | CPT/HCPCS: 99214 ==

== ENCOUNTER → 2022-05-18 14:40 | Outpatient (BNVA) | payer MEDICAID, SELFPAY | PROVIDERS: PCP Nurse Practitioner Family; Visit Provider Physician Assistant | DX: M47.22 Other spondylosis with radiculopathy, cervical region (principal); R20.0 Anesthesia of skin; R20.2 Paresthesia of skin | CPT/HCPCS: 72050 ==

== ENCOUNTER 2022-06-14 15:01 | Outpatient (CLI) | payer MEDICAID, SELFPAY ==
--- NOTE | 2022-06-14 14:45 | MR_ITS ---
WS: [id number] MRI CERVICAL SPINE NONCONTRAST TECHNIQUE: Sagittal T1, T2 and STIR imaging. Axial T2, gradient, and fiesta imaging. CLINICAL INFORMATION: pain COMPARISON: None. FINDINGS: Some images degraded by patient motion. Straightening of the normal cervical lordosis. Cord signal is normal. Mild disc bulging C3-C4 C4-C5 a nd C5-C6. C2-C3: Mild facet arthropathy. Mild LEFT bony foraminal narrowing. Spinal canal and RIGHT foramen are patent. C3-C4: Mild disc osteophytic ridging. Slight effacement of ventral thecal sac. Moderate LEFT and mild RIGHT bony foraminal narrowing. C4-C5: Disc osteophyte complex with endplate ridging. Slight contact of the cervical cord. Spinal can al is patent. Moderate bilateral bony foraminal narrowing. Mild facet arthropathy. Uncovertebral join t hypertrophy. C5-C6: Disc osteophyte complex with endplate ridging. Spinal canal is patent. Moderate facet arthropa thy. Moderate LEFT and mild RIGHT bony foraminal narrowing. C6-C7: Disc osteophyte complex with endplate ridging. Moderate LEFT and mild RIGHT bony foraminal delfina rowing. Moderate facet arthropathy. C7-T1: Disc osteophytic ridging. Spinal canal is patent. Mild LEFT greater than RIGHT foraminal narro wing. Visualized brain stem structures: Normal. Prevertebral soft tissues: Normal. MR/MR cervical spin wo con* [id number] IMPRESSION: Some images degraded by patient motion. 1. Straightening of the normal cervical lordosis. Cord signal is normal. 2. Mild disc osteophyte complexes C3-C4 C4-C5 and C5-C6. Slight contact of the cervical cord at C4-C5 with mild central canal stenosis. 3. Multilevel mild to moderate bony foraminal narrowing worse at LEFT C3-C4, b ilateral C4-C5, LEFT C5-C6 and LEFT C6-C7.
== END 2022-06-14 15:02 | disposition home or self-care (01) ==
LOC: RAD 15:09
PROVIDERS: PCP Nurse Practitioner Family; Visit Provider Physician Assistant
DX: M25.78 Osteophyte, vertebrae (principal); M48.02 Spinal stenosis, cervical region
CPT/HCPCS: 72141; 99214

== ENCOUNTER → 2022-09-21 18:09 | Outpatient (BNVA) | payer MEDICAID, SELFPAY | PROVIDERS: PCP Nurse Practitioner Family; Visit Provider Nurse Practitioner Family | DX: J06.9 Acute upper respiratory infection, unspecified (principal) | CPT/HCPCS: 87400 ==

== ENCOUNTER 2023-02-08 16:09 | Emergency (ER) | payer MEDICAID, SELFPAY ==
[2023-02-08 16:51] VITALS: BP 146/100; PULSE 105; RESP 16; TEMP 36.7; O2SAT 95; BMI 37.5
--- NOTE | 2023-02-08 18:11 | USR_ITS ---
PROCEDURE INFORMATION: Exam: US Duplex Left Lower Extremity Veins, Limited Exam date and time: 02/08/2023 7:07 PM Age: 42 years old Clinical indication: Edema, localized; Lower extremity, left; Additional info: Left lower leg swelling and pain TECHNIQUE: Imaging protocol: Real-time duplex ultrasound of the left extremity with 2-D rosa scale, color Doppler flow and spectral waveform analysis including responses to compression and other maneuvers (when performed) with image documentation. Limited exam focused on the left lower extremity veins. COMPARISON: CR XR foot LT 2V [id number] 10/30/2021 11:02 AM FINDINGS: Left deep veins: Unremarkable. The common femoral, femoral, proximal profunda femoral and popliteal veins are patent without thrombus. Normal Doppler waveforms. Normal compressibility and/or augmentation response. Left superficial veins: Unremarkable. Saphenofemoral junction is patent without thrombus. Soft tissues: Unremarkable. US/CV venous duplex [facility] [id number] IMPRESSION: No evidence of deep vein thrombosis.
--- NOTE | 2023-02-08 18:13 | ED_ITS ---
HPI - Extremity Problem General: Chief complaint: Extremity Injury, Lower Stated complaint: swelling in both feet Time Seen by Provider: 02/08/23 18:01 History of Present Illness: Patient is a 42-year-old male who comes to the ED with left lower leg swelling. Patient says that for the past couple weeks he has had swelling to his left calf along with pain to his left lower leg. Denies any injury or trauma to cause pain or swelling. Within the last 5 days the swelling has gotten a little worse. He describes his pain is mild to moderate. He states that he has a family history of blood clots but denies any past DVTs. Patient is not on a blood thinner. He denies any chest pain, shortness of breath or hemoptysis. Associated symptoms: Deny chest pain, fever(s) or rash Review of Systems Const: Denies: fever(s), chills or fatigue Eyes: Denies: change in vision or eye discomfort ENMT: Denies: throat pain, odynophagia, nasal discharge or nasal congestion Card: Denies: chest pain, palpitations, edema, swelling of feet/ankles, dyspnea on exertion or orthopnea Resp: Denies: dyspnea, productive cough or non-productive cough GI: Denies: abdominal pain, nausea, vomiting, diarrhea, constipation or hematochezia : Denies: flank pain, difficulty urinating, dysuria or hematuria Musc: Reports: extremity pain (Left lower leg) and extremity swelling (Left l ower leg); Denies: neck pain or back pain Skin/Breast: Denies: rash or new lesions Neuro: Denies: headache(s), numbness in extremities or weakness in extremities [facility] ED PFSH: Medical History (Updated 02/08/23 @ 19:54 by VARUN Velazquez) Amaral's palsy Slipped cervical disc Family History Mother Diabetes Hyperlipidemia Hypertension Brother Diabetes Hypertension Clotting disorder Father Diabetes Social History Smoking and tobacco status: current every day smoker cigarettes Packs smoked per day: 2.5 Second hand smoke exposure: Yes Alcohol intake: current Alcohol intake frequency: few times a month Substance/Drug Use: former Date of last use: 2016 Caregiver/support person: Yes Household members: significant other Marital status: Single Sexually active: Yes Current gender identity: Male Physical Exam Const: COMMON NORMALS: no acute distress, patient oriented x3 and alert HENMT: COMMON NORMALS: normocephalic HEAD & SCALP: normocephalic MOUTH: Normal oral and palatal mucosa present THROAT: posterior oropharynx normal and uvula midline Neck/C-Spine: COMMON NORMALS: supple GENERAL: Yes normal visual inspection Resp: COMMON NORMALS: normal respiratory effort, No retractions, No use of accessory muscles and clear to auscultation bilaterally AUSCULTATION: clear to auscultation bilaterally Cardio: COMMON NORMALS: regular rate, regular rhythm, S1 normal heart sound present, S2 normal heart sound present, No gallops present (Cardio), No clicks present (Cardio), No murmurs present (Cardio) and Peripheral pulses 2+ throughout RATE: regular rate RHYTHM: regular rhythm HEART SOUNDS: S1 normal heart sound present and S2 normal heart sound present PERIPHERAL PULSES: Peripheral pulses 2+ throughout GI: COMMON NORMALS: Normal to inspection, nondistended, normoactive bowel sounds present, Soft to palpation, non-tender and no masses PALPATION: Yes Soft to palpation : COMMON NORMALS: Yes no CVA tenderness BLADDER/KIDNEY EXAM: Yes no CVA tenderness Back/Pelvis: COMMON NORMALS: no CVA tenderness Extremity: NARRATIVE EXTREMITY EXAM: Left lower leg?1+ pitting edema in feet and ankle. No calf tenderness noted. Neurovascular intact distally. Neuro: COMMON NORMALS: patient oriented x3 SENSORIUM/ORIENTATION: Yes alert GAIT: Yes Normal gait present Skin: GENERAL SKIN EXAM: dry skin Course Vital Signs: Vital signs: Vital Signs Temperature 98.1 F 02/08/23 16:51 Pulse Rate 105 H 02/08/23 16:51 Respiratory Rate 16 02/08/23 16:51 Blood Pressure 146/100 02/08/23 16:51 Pulse Oximetry 95 02/08/23 16:51 Oxygen Delivery Me thod Room Air 02/08/23 16:51 MDM - Extremity (Nontraumatic) Medical Decision Making Patient is a 42-year-old male who comes to the ED with left lower leg swelling. Patient says that for the past couple weeks he has had swelling to his left calf along with pain to his left lower leg. Denies any injury or trauma to cause pain or swelling. Within the last 5 days the swelling has gotten a little worse. He describes his pain is mild to moderate. He states that he has a family history of blood clots but denies any past DVTs. Patient is not on a blood thinner. He denies any chest pain, shortness of breath or hemoptysis. Vitals stable. Left lower leg?1+ pitting edema in feet and ankle. No calf tenderness noted. Neurovascular intact distally. Ultrasound venous duplex of left lower extremity shows no DVTs. Patient was diagnosed with left lower leg edema and was stable for discharge home. Lab Data Radiology Impressions Venous Duplex 02/08/23 18:11 IMPRESSION: No evidence of deep vein thrombosis. Discharge Plan Discharge Patient Disposition: Home Clinical Impression: Edema of left lower leg Condition: Stable Prescriptions: No Action aspirin 500 mg tablet 500 mg PO Q6H albuterol sulfate [Ventolin HFA] 90 mcg/actuation HFA aerosol inhaler 1 - 2 puff inhalation Q6H PRN (Reason: shortness of breath or wheezing) Qty: 8.5 0RF benzonatate 100 mg capsule 100 mg PO BID PRN (Reason: cough) Qty: 14 0RF azithromycin [Zithromax] 250 mg tablet See Rx Instructions PO .COMPLEX Qty: 6 0RF Rx Instructions: For 250 mg dose pack: take 500 mg today (day 1), then 250 mg for 4 days (days 2-5) PO cyclobenzaprine 10 mg tablet 10 mg PO TID PRN (Reason: muscle spasm) Qty: 90 0RF ibuprofen 800 mg tablet 800 mg PO TID MDD 4 tabs PRN (Reason: pain) 30 Days Qty: 120 0RF (DME) Cane See Rx Instructions .Route .MEDSUPPLY Qty: 1 0RF Rx Instructions: As directed Discharge Orders: Discharge ED (Routine); Ordered 02/08/23 Ordered By: Chad Casiano Referrals: Kaleb Maya DO [Primary Care Provider] - Discharge Diet: Regular Discharge Activity: Increase activity as tolerated Patient Instructions: Leg Edema (ED) Activity Restrictions/Additional Instructions: Follow-up with medical provider as directed in the next 5 to 7 days for reevaluation. Wear compression stockings and elevate legs throughout the day to help with swelling. Continue taking all home medications as previously prescribed. Return to the ER or your medical provider if condition worsens. Please read and understand discharge instructions. Thank you for choosing [facility] for your healthcare needs today. Please realize this is an emergency room and that we are providing you with a medical screening exam and this may not be complete and all inclusive of all the testing and or work up that you may need to determine your ailment or severity of your illness. It is very important that you follow up as instructed or that you return to the Emergency Department should you have concerns or if your condition changes or worsens in any way. Coding Level of Care Code ED Data Management Associate for Irasema Ferreira
== END 2023-02-08 20:07 | disposition home or self-care (01) ==
PROVIDERS: Emergency Provider Physician Assistant; PCP Electrodiagnostic Medicine
DX: R60.0 Localized edema (principal); F17.210 Nicotine dependence, cigarettes, uncomplicated
CPT/HCPCS: 93971; 99284

== ENCOUNTER 2024-07-24 03:35 | Emergency (ER) | payer MEDICAID, SELFPAY ==
[2024-07-24 03:42] VITALS: BP 137/111; PULSE 94; RESP 18; TEMP 36.7; O2SAT 97; BMI 32.5
[2024-07-24 03:47] VITALS: BP 137/111; PULSE 91; O2SAT 96
--- NOTE | 2024-07-24 03:58 | W.ED.BACK ---
HPI - Back Pain/Injury General: Chief Complaint: Back Pain/Injury Stated Complaint: Anxiety\Pain Hips\Back Time Seen by Provider: 07/24/24 03:40 History of Present Illness: Patient presents to the ER complaining of back pain and bilateral hip pain. Patient says been walking for the last 2 days. He was kicked out of the place he was staying in been walking in the rain all night. Patient said he got tired of walking started to feel sore so he wanted to get checked out. Patient denies any new trauma. Patient said he had trauma back in 1999 and this is the same pain from that he thinks he just overdid it. Related Data Home Medications Medication Instructions Recorded Confirmed aspirin 500 mg tablet 500 mg PO Q6H 03/01/22 09/21/22 Previous Rx's Medication Instructions Recorded cyclobenzaprine 10 mg tablet 10 mg PO TID PRN muscle spasm #90 07/20/22 tabs ibuprofen 800 mg tablet 800 mg PO TID PRN pain 30 days 07/20/22 #120 tabs Cane #1 ea 08/04/22 albuterol sulfate 90 mcg/actuation 1 - 2 puff inhalation Q6H PRN 09/21/22 aerosol inhaler (Ventolin HFA) shortness of breath or wheezing #8.5 grams benzonatate 100 mg capsule 100 mg PO BID PRN cough #14 caps 09/21/22 azithromycin 250 mg tablet See Rx Instructions PO .COMPLEX #6 09/23/22 (Zithromax) tabs Allergies Allergy/AdvReac Type Severity Reaction Status Date / Time diclofenac Allergy ADR-Chest Verified 07/24/24 03:47 Pain haloperidol [From Haldol] Allergy ALGY-Swell Verified 07/24/24 03:47 Lip/Tongue/Throat tramadol Allergy ALGY-Hives Verified 07/24/24 03:47 Review of Systems General: Reports: 10 or more systems reviewed and unremarkable except in HPI and below PFSH ED PFSH: Medical History (Updated 07/24/24 @ 05:07 by Adama Martinez DO) Amaral's palsy Slipped cervical disc Family History Mother Diabetes Hyperlipidemia Hypertension Brother Diabetes Hypertension Clotting disorder Father Diabetes Social History Smoking and tobacco/nicotine status: current every day tobacco/nicotine user cigarettes Packs smoked per day: 2.5 Second hand smoke exposure: Yes Alcohol intake: current Alcohol intake frequency: few times a month Substance/Drug Use: former Date of last use: 2016 Caregiver/support person: Yes Household members: significant other Marital status: Single Sexually active: Yes Current gender identity: Male Physical Exam Const: COMMON NORMALS: no acute distress, average body habitus, patient oriented x3, no limitations, healthy appearing, alert and well nourished HENMT: COMMON NORMALS: normocephalic, atraumatic, hearing grossly normal bilaterally, external ears normal, Normal external nose present and moist oral mucous membranes HEAD & SCALP: normocephalic and atraumatic NOSE: Normal external nose present EXTERNAL EAR: Yes external ears normal Neck/C-Spine: COMMON NORMALS: no JVD Chest: COMMONS NORMALS: normal inspection of the chest and normal palpation of entire chest wall Resp: COMMON NORMALS: normal respiratory effort, No retractions, No use of accessory muscles and clear to auscultation bilaterally AUSCULTATION: clear to auscultation bilaterally Cardio: COMMON NORMALS: no JVD, regular rate, regular rhythm, S1 normal heart sound present, S2 normal heart sound present, No gallops present (Cardio), No clicks present (Cardio), No murmurs present (Cardio) and No rub (Cardio) RATE: regular rate RHYTHM: regular rhythm HEART SOUNDS: S1 normal heart sound present and S2 normal heart sound present GI: COMMON NORMALS: Normal to inspection, nondistended, normoactive bowel sounds present, Soft to palpation, non-tender, No hepatosplenomegaly present and no masses PALPATION: Yes Soft to palpation and Yes No hepatosplenomegaly present Neuro: COMMON NORMALS: patient oriented x3 SENSORIUM/ORIENTATION: Yes alert Course Vital Signs: Vital signs: Vital Signs Temperature 98.0 F 07/24/24 03:42 Pulse Rate 91 07/24/24 03:47 Respiratory Rate 18 07/24/24 03:42 Blood Pressure 137/111 07/24/24 03:47 Pulse Oximetry 96 07/24/24 03:47 Oxygen Delivery Me thod Room Air 07/24/24 03:42 MDM - Back Pain/Injury Medical Decision Making Patient presents to the ER with complaints of a sore low back and sore hips due to him walking. No recent trauma or known older chronic pain. When asked what patient wanted he just had a soda and a sandwich. He was asked if he needed pain medicine he said he had Tylenol and Motrin. Patient was allowed to stay here and eat and drink. Patient be discharged home. Medical Records I reviewed the patient's medical records. Labs I reviewed the patient's lab results. No radiology studies performed this visit Discharge Plan Discharge Patient Disposition: Home Clinical Impression: Low back pain Qualifiers: Chronicity: chronic Back pain laterality: bilateral Sciatica presence: without sciatica Qualified Code(s): M54.50 - Low back pain, unspecified Condition: Stable Prescriptions: No Action aspirin 500 mg tablet 500 mg PO Q6H albuterol sulfate [Ventolin HFA] 90 mcg/actuation HFA aerosol inhaler 1 - 2 puff inhalation Q6H PRN (Reason: shortness of breath or wheezing) Qty: 8.5 0RF benzonatate 100 mg capsule 100 mg PO BID PRN (Reason: cough) Qty: 14 0RF azithromycin [Zithromax] 250 mg tablet See Rx Instructions PO .COMPLEX Qty: 6 0RF Rx Instructions: For 250 mg dose pack: take 500 mg today (day 1), then 250 mg for 4 days (days 2-5) PO cyclobenzaprine 10 mg tablet 10 mg PO TID PRN (Reason: muscle spasm) Qty: 90 0RF ibuprofen 800 mg tablet 800 mg PO TID MDD 4 tabs PRN (Reason: pain) 30 Days Qty: 120 0RF (DME) Cane See Rx Instructions .Route .MEDSUPPLY Qty: 1 0RF Rx Instructions: As directed Discharge Orders: Discharge ED (Routine); Ordered 07/24/24 Ordered By: Adama Martinez Referrals: Kaleb Maya DO [Primary Care Provider] - 1 week Patient Instructions: Chronic Back Pain (DC) Activity Restrictions/Additional Instructions: Thank you for choosing [facility] for your healthcare needs today. Please realize that you were seen in the emergency department and that we are providing you with an emergency medical screening exam and this may not be a complete and all exclusive of all testing and/or medical workup we may need to determine your element or severity of your illness. It is very important that you follow-up as instructed with your primary care provider or specialist for the additional evaluation and to discuss your medical treatment plan. You may return to the emergency department should you have concerns or if your condition changes or worsens in any way. Coding Level of Care Code ED Face Worker for Irasema Ferreira
[2024-07-24 05:59] VITALS: BP 124/96; PULSE 82; O2SAT 97
== END 2024-07-24 05:45 | disposition home or self-care (01) ==
PROVIDERS: Emergency Provider Emergency Medicine; PCP Electrodiagnostic Medicine
DX: M54.50 Low back pain, unspecified (principal); F17.210 Nicotine dependence, cigarettes, uncomplicated
CPT/HCPCS: 99281

== ENCOUNTER → 2024-12-06 13:59 | Outpatient (BNVA) | payer OTHER, SELFPAY | PROVIDERS: PCP Electrodiagnostic Medicine; Visit Provider Psychiatry & Neurology Psychiatry | DX: F31.12 Bipolar disorder, current episode manic without psychotic features, moderate (principal); F41.8 Other specified anxiety disorders | CPT/HCPCS: 80061; 83036 ==

== ENCOUNTER 2025-01-29 19:16 | Emergency (ER) | payer MEDICAID, SELFPAY ==
[2024-12-11 09:34] VITALS: BP 145/90; BMI 34.2
[2025-01-29] VITALS (8 sets, daily range): BP systolic 106–143; BP diastolic 62–85; PULSE 70–94; RESP 13–20; TEMP 36.9; O2SAT 91–98; BMI 33.7
[2025-01-29] MEDS: methylPREDNISolone sod succ 125 mg/2 mL INJ IVP (19:54)
[2025-01-29] MEDS: diphenhydrAMINE 50 mg/mL SDV 1mL IVP (19:56)
[2025-01-29] MEDS: EPINEPHrine 1 mg/mL INJ 0.3 MG IM (20:02)
[2025-01-29] MEDS: tranexamic acid 1,000 MG/100 ML PREMIX 600 MG IV (20:05)
[2025-01-29 20:10] LABS: Basophils % 0.3 %; Eosinophils # 0.1 10^3/uL (0.0-0.8); Eosinophils % 0.8 %; Hematocrit 48.5 % (37-53); Lymphocytes # 3.2 10^3/uL (0.8-4.8); Lymphocytes % 27.9 %; Mean Corpuscular HGB Conc 34.2 g/dL (30-55); Mean Corpuscular Hemoglobin 31.6 pg (27-33); Mean Corpuscular Volume 92.4 fl (82-101); Mean Platelet Volume 9.3 fL (7.4-10.4); Monocytes # 0.6 10^3/uL (0.2-0.9); Monocytes % 4.8 %; Neutrophils # 7.61 10^3/uL (1.8-7.7); Neutrophils % 65.9 %; Nucleated Red Blood Cells % 0 %; Platelet Count 225 10^3/cmm (157-399); Red Blood Count 5.25 10^6/uL (3.85-5.65); Red Cell Distribution Width 12.2 % (12.1-15.1); White Blood Count 11.57 10^3/uL (3.29-11.43)
[2025-01-29 20:38] LABS: Alanine Aminotransferase 14 U/L (0-41); Albumin Level 4.1 g/dL (3.5-5.2); Alkaline Phosphatase 81 U/L (40-130); Anion Gap 17.3 (5-19); Aspartate Amino Transferase 23 U/L (0-40); Blood Urea Nitrogen 16 mg/dL (6-20); Calcium 9.4 mg/dL (8.5-10.5); Carbon Dioxide 23 mmol/L (22-29); Chloride 103 mmol/L (98-107); Globulin 3.1 g/dL (1.3-4.6); Glomerular Filtration Rate 54.8 mL/min (90-130); Glucose 91 mg/dL (65-115); Osmolality Calculated 291 mOsm/kg (285-295); Potassium 3.3 mmol/L (3.5-5.1); Sodium 140 mmol/L (136-145); Total Bilirubin 0.3 mg/dL (0.15-1.2); Total Protein 7.2 g/dL (6.6-8.7)
[2025-01-29] MEDS: ondansetron 2 mg/ML SDV 2 mL 4 MG IVP (20:55)
--- NOTE | 2025-01-29 20:55 | ED_ITS ---
HPI - Allergic Reaction 2 General: Chief complaint: Allergic Reaction Stated complaint: ALLERGIC REACTION Time Seen by Provider: 01/29/25 19:24 History of Present Illness: HPI narrative: Patient is a generally well-appearing 44-year-old male seen for tongue swelling and a rash on his arms, chest, and back. He states that he is able to speak and breathe normally but he does feel that his throat is closing off a small amount and that his speech is mildly slurred. 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 He is allergic to other kinds of peppers and thinks this may be the cause. He had not eaten any of the peppers. There is no rash on the hands, palms, soles, and no other mucosal membrane involvement. He does not feel that his lips are large. Related Data Home Medications ?Medication ?Instructions ?Recorded ?Confirmed aspirin 500 mg tablet 500 mg PO Q6H 03/01/2208/27 Previous Rx's ?Medication ?Instructions ?Recorded cyclobenzaprine 10 mg tablet 10 mg PO TID PRN muscle s pasm #90 07/20/22 tabs ibuprofen 800 mg tablet 800 mg PO TID PRN pain 30 da ys 07/20/22 #120 tabs albuterol sulfate 90 mcg/actuation 1 - 2 puff inhalati on Q6H PRN 09/21/22 aerosol inhaler (Ventolin HFA) shortness of breath or wheezing #8.5 grams prednisone 20 mg tablet 20 mg PO BID 5 days #10 tabs 01/29/25 Allergies Allergy/AdvReac Type Severity Reaction Status Date / Time amaral pepper Allergy Severe ALGY-Hives Verified 01/29/25 19:27 paprika Allergy Severe ALGY-Hives Verified 01/29/25 19:27 diclofenac Allergy ADR-Chest Verified 01/29/25 19:27 Pain haloperidol (From Haldol) Allergy ALGY-Swell Verified 01/29/25 19:27 Lip/Tongue/Throat tramadol Allergy ALGY-Hives Verified 01/29/25 19:27 [facility] ED 2 PFSH: Medical History Psychiatric care Amaral's palsy Slipped cervical disc Family History (Updated 12/06/24 @ 11:47 by Bekah Kaplan RN) Mother Diabetes Hyperlipidemia Hypertension Brain cancer Lung cancer Brother Diabetes Hypertension Clotting disorder Father Diabetes Heart disease Brother Diabetes Rheumatoid arthritis Hypertension Social History (Updated 12/06/24 @ 11:56 by Bekah Kaplan RN) Smoking and tobacco/nicotine status: current every day tobacco/nicotine user cigarettes Packs smoked per day: 0.5 Years cigarettes smoked: 27 and e- cigarettes E-Cigarette Details: e-cigarette and with nicotine E-cig/vape details: 5 % with 30,000 just started Quit status (tobacco/nicotine): considering quitting Second hand smoke exposure: Yes Alcohol intake: former Year of sobriety/quit date alcohol: 2022 Substance/Drug Use: current Substance/Drug use frequency: few times a week Other substance/drug use details: edibles Adopted: No Caregiver/support person: No Lives independently: Yes Household members: none 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 Marital status: Marital status details: August 2024 Number of children: 6 Number of grandchildren: 3 Highest education level completed: 9th Grade service: No Current occupational status: employed Current occupation: [employer] Current occupational exposures/hazards: No Pets and animals: No Leisure activites: games and reading Sexually active: Yes Do you think of yourself as: Straight/Heterosexual Current gender identity: Male Estefanía/Denominational: Cheondoism Special estefanía needs: No Agree to transfusion: Yes Physical Exam 2 Const: COMMON NORMALS: no acute distress, patient oriented x3 and alert HENMT: COMMON NORMALS: normocephalic and atraumatic HEAD & SCALP: n ormocephalic and atraumatic OTHER: Tongue is mild to moderately swollen, left side greater than right. Lips are normal size. Posterior oropharynx is normal in appearance. Phonation is normal. No obvious shortness of breath or difficulty speaking. Eye: COMMON NORMALS: Equal, round and reactive pupils present, EOMs intact bilaterally and no scleral icterus PUPIL: Yes Equal, round and reactive pupils present Resp: COMMON NORMALS: normal respiratory effort and No retractions Cardio: COMMON NORMALS: regular rate, regular rhythm and No murmurs present (Cardio) RATE: regular rate RHYTHM: regular rhythm GI: COMMON NORMALS: Normal to inspection, nondistended, normoactive bowel sounds present, Soft to palpation and non-tender PALPATION: Yes Soft to palpation Neuro: COMMON NORMALS: patient oriented x3 SENSORIUM/ORIENTATION: Yes alert Skin: OTHER: Maculopapular rash of the arms, chest, and upper back. No mucosal membrane involvement. No palm or sole involvement. Rash by his telling it has rapidly expanded. Course 2 Vital Signs: Vital signs: Vital Signs Temperature 98.5 F 01/29/25 19:22 Pulse Rate 70 01/29/25 23:48 Respiratory Rate 16 01/29/25 23:48 Blood Pressure 106/66 01/29/25 23:48 Pulse Oximetry 98 01/29/25 23:48 Oxygen Delivery Me thod Room Air 01/29/25 20:58 MDM - Allergic Reaction Medical Decision Making Patient remained hemodynamically stable throughout ED course. After receiving a cocktail of medications and angioedema, rash is completely resolved and tongue swelling is 80% decreased. He is able to speak without difficulty. He was observed in the emergency department for several hours during which time symptoms only improved. We discussed that NSAIDs may be the cause of his angioedema and he will try using alternative medications for his pain control. He will be discharged in stable and improved condition knowing that he is always welcome back to emergency department needed. Lab Data 01/29/25 19:54 01/29/25 19:54 Laboratory Results WBC 11.57 10^3/uL (3.29-11.43) H 01/29/25 19:54 RBC 5.25 10^6/uL (3.85-5.65) 01/29/25 19:54 Hgb 16.60 g/dL (11.27-16.99) 01/29/25 19:54 Hct 48.5 % (37-53) 01/29/25 19:54 MCV 92.4 fl (82-101) 01/29/25 19:54 MCH 31.6 pg (27-33) 01/29/25 19:54 MCHC 34.2 g/dL (30-55) 01/29/25 19:54 RDW 12.2 % (12.1-15.1) 01/29/25 19:54 Plt Count 225 10^3/cmm (157-399) 01/29/25 19:54 MPV 9.3 fL (7.4-10.4) 01/29/25 19:54 Neut % (Auto) 65.9 % 01/29/25 19:54 Lymph % (Auto) 27.9 % 01/29/25 19:54 Gilliam % (Auto) 4.8 % 01/29/25 19:54 Eos % (Auto) 0.8 % 01/29/25 19:54 Baso % (Auto) 0.3 % 01/29/25 19:54 Neut # (Auto) 7.61 10^3/uL (1.8-7.7) 01/29/25 19:54 Lymph # (Auto) 3.2 10^3/uL (0.8-4.8) 01/29/25 19:54 Gilliam # (Auto) 0.6 10^3/uL (0.2-0.9) 01/29/25 19:54 Eos # (Auto) 0.1 10^3/uL (0.0-0.8) 01/29/25 19:54 Baso # (Auto) 0.0 10^3/uL (0.0-0.1) 01/29/25 19:54 Nucleated RBC % (auto) 0 % 01/29/25 19:54 Nucleated RBCs # 0.0 /100WBC 01/29/25 19:54 Sodium 140 mmol/L (136-145) 01/29/25 19:54 Potassium 3.3 mmol/L (3.5-5.1) L 01/29/25 19:54 Chloride 103 mmol/L (98-107) 01/29/25 19:54 Carbon Dioxide 23 mmol/L (22-29) 01/29/25 19:54 Anion Gap 17.3 (5-19) 01/29/25 19:54 BUN 16 mg/dL (6-20) 01/29/25 19:54 Creatinine 1.4 mg/dL (0.7-1.2) H 01/29/25 19:54 GFR Calculation 54.8 mL/min (90-130) L 01/29/25 19:54 Glucose 91 mg/dL (65-115) 01/29/25 19:54 Calculated Osmolality 291 mOsm/kg (285-295) 01/29/25 19:54 Calcium 9.4 mg/dL (8.5-10.5) 01/29/25 19:54 Total Bilirubin 0.3 mg/dL (0.15-1.2) 01/29/25 19:54 AST 23 U/L (0-40) 01/29/25 19:54 ALT 14 U/L (0-41) 01/29/25 19:54 Alkaline Phosphatase 81 U/L (40-130) 01/29/25 19:54 Total Protein 7.2 g/dL (6.6-8.7) 01/29/25 19:54 Albumin 4.1 g/dL (3.5-5.2) 01/29/25 19:54 Globulin 3.1 g/dL (1.3-4.6) 01/29/25 19:54 No radiology studies performed this visit Discharge Plan Discharge Patient Disposition: Home Clinical Impression: Urticaria, Angioedema of tongue Condition: Stable Prescriptions: New prednisone 20 mg tablet 20 mg PO BID 5 Days Qty: 10 0RF No Action aspirin 500 mg tablet 500 mg PO Q6H albuterol sulfate [Ventolin HFA] 90 mcg/actuation HFA aerosol inhaler 1 - 2 puff inhalation Q6H PRN (Reason: shortness of breath or wheezing) Qty: 8.5 0RF cyclobenzaprine 10 mg tablet 10 mg PO TID PRN (Reason: muscle spasm) Qty: 90 0RF ibuprofen 800 mg tablet 800 mg PO TID MDD 4 tabs PRN (Reason: pain) 30 Days Qty: 120 0RF Discharge Orders: Discharge ED (Routine); Ordered 01/29/25 Ordered By: Ritesh Torres Referrals: Kaleb Maya DO [Primary Care Provider, [facility]] Discharge Diet: Advance as tolerated Discharge Activity: Increase activity as tolerated Patient Instructions: Angioedema (ED) Activity Restrictions/Additional Instructions: Please take 50 mg of Benadryl every 6 hours as needed for itching or tongue swelling. Please also take prednisone as prescribed to keep the tongue from swelling further. Of all possibilities, the tongue swelling is most likely due to ibuprofen. NSAIDs are a lead because of angioedema and I would advise stopping taking it so this does not happen again. Print Language: Maltese Coding Level of Care Code ED Bobbin Cleaner Hand for Irasema Ferreira
== END 2025-01-29 23:50 | disposition home or self-care (01) ==
PROVIDERS: Emergency Provider Student in an Organized Health Care Education/Training Program; PCP Electrodiagnostic Medicine
DX: T78.3XXA Angioneurotic edema, initial encounter (principal); X58.XXXA Exposure to other specified factors, initial encounter; F17.290 Nicotine dependence, other tobacco product, uncomplicated
CPT/HCPCS: 36415; 80053; 85025; 96365; 96372; 96375; 99284; J0171; J1200; J2405; J2919; J9999